=== PATIENT | female | born 1970 | race Caucasian/White ===

== ENCOUNTER 2019-04-06 13:00 | Inpatient (IN) ==
[2019-04-06] MEDS ORDERED: methylPREDNISolone 125 MG/2 ML VIAL IVP ONE (13:18)
[2019-04-06] MEDS ORDERED: Ipratropium/Albuterol Neb 3 ML IH ONE (13:18)
[2019-04-06] MEDS ORDERED: 0.9 % Sodium Chloride 1,000 ML IVC SCH (13:30)
[2019-04-06 13:34] LABS: ABG Base Excess 1 mEq/L (-2 to 3); ABG HCO3 21 mEq/L (21-27); ABG Oxygen Saturation 95 % (95-98); ABG PCO2 24 mmHg (35-45); ABG PH 7.55 pH Units (7.32-7.45); ABG PO2 65 mmHg (85-104); ABG TCO2 22 mEq/L (20-26)
[2019-04-06 13:44] LABS: Basophils % 0.3 %; Hematocrit 33.9 % (35.3-44.9); Hemoglobin 11.7 g/dL (11.5-15.4); Immature Granulocytes % 1.8 % (0-4); Lymphocytes # 0.6 K/mcL (0.6-4.6); Lymphocytes % 4.4 %; Mean Corpuscular HGB Conc 34.5 g/dL (31.6-35.5); Mean Corpuscular Volume 84.1 fL (83.0-100.0); Mean Platelet Volume 9.6 fL (9.4-12.4); Monocytes # 0.2 K/mcL (0.0-1.3); Monocytes % 1.1 %; Platelet Count 327 K/mcL (140-400); Red Blood Count 4.03 M/mcL (3.82-4.97); Red Cell Distribution Width 13.2 % (11.5-14.5); Segmented Neutrophils % 92.4 %; White Blood Count 14.1 K/mcL (4.3-11.1)
[2019-04-06 13:50] LABS: INR 1.4; Prothrombin Time 15.7 Seconds (9.4-12.1)
[2019-04-06 13:53] LABS: Activated Partial Thrombo Time 31.6 Seconds (26.0-36.0)
[2019-04-06 14:02] LABS: BUN/Creatinine Ratio 17 (6-26); Blood Urea Nitrogen 10 mg/dL (6-20); Calcium 8.6 mg/dL (8.6-10.3); Carbon Dioxide 21 mEq/L (23-29); Chloride 89 mEq/L (98-107); Creatine Kinase 48 Units/L (30-223); Glucose 268 mg/dL (70-105); Osmolality,Calculated 264 (280-300); Potassium 3.8 mEq/L (3.5-5.1); Sodium 123 mEq/L (136-145); eGFR For African Americans > 60 (> 60); eGFR For Non-African Americans > 60 (> 60)
[2019-04-06] MEDS ORDERED: Isovue-370 500 ML BOTTLE IVP ONE (14:04)
[2019-04-06 14:08] LABS: Troponin I 0.04 ng/mL (< 0.04)
[2019-04-06 14:15] LABS: Hypersegmented Neutrophils Present (Not Present)
[2019-04-06 14:16] LABS: Platelet Estimate Normal (Normal)
[2019-04-06] MEDS ORDERED: levoFLOXacin 750 MG/150 ML 750 MG/150 ML BAG IVPB ONE (14:38)
[2019-04-06] MEDS ORDERED: Ipratropium/Albuterol Neb 3 ML ONE ×2 (15:40→16:05)
[2019-04-06] MEDS ORDERED: Ipratropium/Albuterol Neb 3 ML IH SCH (16:00)
[2019-04-06] MEDS ORDERED: *HR* Dextrose 50 % in Water (Vial) 50 ML VIAL IVP PRN (17:00)
[2019-04-06] MEDS ORDERED: D5% in Water 1,000 ML IVC PRN (17:00)
[2019-04-06] MEDS ORDERED: Dextrose Gel 15 GM/37.5 ML TUBE PO PRN ×2 (17:00)
[2019-04-06] MEDS: Insulin LISPRO 300 UNITS/3 ML VIAL SQ SCH ×2 (17:50→22:05)
[2019-04-06] MEDS: 0.9 % Sodium Chloride 1,000 ML IVC SCH ×2 (17:56→19:31)
[2019-04-06] MEDS: Ipratropium/Albuterol Neb 3 ML IH SCH (22:04)
[2019-04-07] MEDS: Ipratropium/Albuterol Neb 3 ML IH SCH ×7 (01:06→23:56)
[2019-04-07] MEDS: 0.9 % Sodium Chloride 1,000 ML IVC SCH ×3 (01:06→09:59)
[2019-04-07 05:32] LABS: Basophils % 0.2 %; Hematocrit 30.4 % (35.3-44.9); Immature Granulocytes % 1.2 % (0-4); Lymphocytes # 0.6 K/mcL (0.6-4.6); Lymphocytes % 3.7 %; Mean Corpuscular HGB Conc 33.6 g/dL (31.6-35.5); Mean Corpuscular Hemoglobin 28.7 pg (28.0-33.3); Mean Corpuscular Volume 85.6 fL (83.0-100.0); Mean Platelet Volume 10.1 fL (9.4-12.4); Monocytes # 0.3 K/mcL (0.0-1.3); Neutrophils # 14.8 K/mcL (1.6-8.9); Platelet Count 345 K/mcL (140-400); Red Blood Count 3.55 M/mcL (3.82-4.97); Red Cell Distribution Width 13.5 % (11.5-14.5); Segmented Neutrophils % 92.9 %; White Blood Count 15.9 K/mcL (4.3-11.1)
[2019-04-07 05:37] LABS: Hemoglobin 10.2 g/dL (11.5-15.4)
[2019-04-07 05:49] LABS: BUN/Creatinine Ratio 17 (6-26); Blood Urea Nitrogen 10 mg/dL (6-20); Calcium 8.3 mg/dL (8.6-10.3); Carbon Dioxide 25 mEq/L (23-29); Chloride 95 mEq/L (98-107); Glucose 297 mg/dL (70-105); Osmolality,Calculated 278 (280-300); Potassium 3.8 mEq/L (3.5-5.1); Sodium 129 mEq/L (136-145); eGFR For African Americans > 60 (> 60); eGFR For Non-African Americans > 60 (> 60)
[2019-04-07] MEDS: Famotidine 20 MG TABLET PO SCH (08:13)
[2019-04-07] MEDS: Insulin LISPRO 300 UNITS/3 ML VIAL SQ SCH ×4 (08:13→23:55)
[2019-04-07] MEDS: Fish Oil 1,000 Mg Softgel PO SCH (08:14)
[2019-04-07] MEDS: levoFLOXacin 750 MG/150 ML 750 MG/150 ML BAG IVPB SCH (08:14)
[2019-04-07] MEDS ORDERED: MethylPREDNISolone 40 MG/ML VIAL IVP ONE (08:48)
[2019-04-07] MEDS ORDERED: levoFLOXacin 750 MG/150 ML 750 MG/150 ML BAG IVPB SCH ×2 (09:00)
[2019-04-07] MEDS ORDERED: 0.9 % Sodium Chloride 1,000 ML IVC SCH (09:45)
[2019-04-07] MEDS: MethylPREDNISolone 40 MG/ML VIAL IVP SCH ×2 (18:06→23:55)
[2019-04-07] MEDS ORDERED: D5% in Water 1,000 ML IVC PRN (23:06)
[2019-04-07] MEDS ORDERED: Dextrose Gel 15 GM/37.5 ML TUBE PO PRN (23:06)
[2019-04-08] MEDS: Ipratropium/Albuterol Neb 3 ML IH SCH ×5 (05:04→20:55)
[2019-04-08] MEDS: Insulin LISPRO 300 UNITS/3 ML VIAL SQ SCH ×5 (08:28→20:41)
[2019-04-08] MEDS: MethylPREDNISolone 40 MG/ML VIAL IVP SCH ×2 (08:30→17:15)
[2019-04-08] MEDS: Famotidine 20 MG TABLET PO SCH (08:30)
[2019-04-08] MEDS: Fish Oil 1,000 Mg Softgel PO SCH (08:33)
[2019-04-08] MEDS: levoFLOXacin 750 MG/150 ML 750 MG/150 ML BAG IVPB SCH (08:34)
[2019-04-08 10:31] LABS: Estimated Average Glucose 183 mg/dl
[2019-04-08 14:33] LABS: Basophils % 0.2 %; Hematocrit 31.8 % (35.3-44.9); Hemoglobin 10.6 g/dL (11.5-15.4); Immature Granulocytes % 3.2 % (0-4); Lymphocytes # 0.6 K/mcL (0.6-4.6); Mean Corpuscular HGB Conc 33.3 g/dL (31.6-35.5); Mean Corpuscular Hemoglobin 28.7 pg (28.0-33.3); Mean Corpuscular Volume 86.2 fL (83.0-100.0); Mean Platelet Volume 10.3 fL (9.4-12.4); Monocytes # 0.4 K/mcL (0.0-1.3); Monocytes % 2.5 %; Neutrophils # 13.7 K/mcL (1.6-8.9); Platelet Count 450 K/mcL (140-400); Red Blood Count 3.69 M/mcL (3.82-4.97); Red Cell Distribution Width 14.1 % (11.5-14.5); Segmented Neutrophils % 90.1 %; White Blood Count 15.2 K/mcL (4.3-11.1)
[2019-04-08 14:45] LABS: BUN/Creatinine Ratio 30 (6-26); Blood Urea Nitrogen 18 mg/dL (6-20); Calcium 8.5 mg/dL (8.6-10.3); Carbon Dioxide 23 mEq/L (23-29); Chloride 97 mEq/L (98-107); Glucose 367 mg/dL (70-105); Osmolality,Calculated 285 (280-300); Sodium 129 mEq/L (136-145); eGFR For African Americans > 60 (> 60); eGFR For Non-African Americans > 60 (> 60)
[2019-04-09] MEDS: Ipratropium/Albuterol Neb 3 ML IH SCH ×4 (00:20→12:34)
[2019-04-09] MEDS: MethylPREDNISolone 40 MG/ML VIAL IVP SCH (05:45)
[2019-04-09] MEDS: levoFLOXacin 750 MG/150 ML 750 MG/150 ML BAG IVPB SCH (07:51)
[2019-04-09] MEDS: Famotidine 20 MG TABLET PO SCH (07:51)
[2019-04-09] MEDS: Insulin LISPRO 300 UNITS/3 ML VIAL SQ SCH ×2 (07:55→12:06)
[2019-04-09] MEDS: Fish Oil 1,000 Mg Softgel PO SCH (08:07)
[2019-04-09 08:36] LABS: Mycoplasma pneumoniae IgG 0.26 U/L (<=0.09)
[2019-04-09 12:04] VITALS: BP 159/99
[2019-04-10] MEDS ORDERED: levoFLOXacin 750 MG TABLET PO SCH (09:00)
[2019-04-10] MEDS ORDERED: predniSONE 20 MG TABLET PO SCH (09:00)
== END 2019-04-09 13:36 | disposition home or self-care (01) | DRG 194 ==
LOC: INPGRE 13:00 → EMEROOGRE 13:00 → INPGRE 15:27
PROVIDERS: ADMIT Family Medicine; ATTEND Family Medicine